=== PATIENT | female | born 1965 | race African-American/Black ===

== ENCOUNTER → 2016-03-27 | Outpatient (CLI) | payer BC ==
[~2016-03-27] MED LIST: ALLEGRA180 MG PO; ASPIR 8181 MG PO; COREG6.25 MG PO; ESTRACE0.5 MG PO; FLEXERIL PO; FLONASE 0.05%50 MCG NASAL; HYDROXYCHLOROQ200 M1 PO; IMURAN 50MG TAB50 M1 PO; KLOR-CON 1010 MEQ PO; LASIX 20 MG TAB20 MG PO; LISINOPRIL5 MG PO; METAXALONE800 MG PO; NAPROSYN500 MG PO; NAPROXEN DELAY500 M1 PO; NEXIUM40 MG PO; NORCO 5-325 TA1 EACH PO; PAXIL40 MG PO; PREDNISONE 2.52.5 M1 PO; PREDNISONE 5 MG5 M1 PO; PROAIR HFA8.5 GM INH; REQUIP0.5 MG PO; UNICOMPLEX M TA1 TA1 PO; ZANTAC 150MG T150 M1 PO
--- NOTE | ~2016-03-27 | 2DMMODE ---
[facility] [place] [address] 2 D/M-MODE ECHOCARDIOGRAM Name: DAVIDSON LEUNG Room #: REG [facility]#: [id number] Admission: 03/27/16 Attend Phys: Adonis Espinosa Discharge: Date of : 67 Date of Service: 03/27/16 0927 Report #: [id number] THIS REPORT FOR: //name// Transthoracic Echocardiography Ordering physician: Adonis Espinosa Referring physician: Adonis Espinosa Sales Associate Cashier: Aria Bradley Indications/History: Cardiomyopathy. BP: 119 / HR: 63bpm Height: 65in Weight: 224.5lb 72 Study data: M-mode, complete 2D, complete spectral Doppler, and color Doppler. Location: Echo laboratory. Routine. Image quality was adequate. The study was technicallydifficult due to body habitus. 2D measurements Normal Normal LVID ED 59.7mm 36-57 IVS ED 10.7mm 6-11 LVID ES 50.7mm 23-40 LVPW ED 9.9mm 6-11 LA volume 45ml/m2 16-28 AoRoot diam 27.1mm 21-37 index ED LVOT diameter 21mm 18-23 Findings: Left ventricle: The cavity size was dilated. Wall thickness was normal. Systolic function was moderately reduced. The estimated ejection fraction was in the range of 35-40%. Right ventricle: The cavity size was normal. Systolic function was mildly reduced. Right atrium: The atrium was normal in size. Left atrium: The atrium was moderately to severely dilated. Volume index: 45ml/m2 (S). Aortic valve: Structurally normal valve. Doppler: There was no stenosis. Trivial regurgitation. Peak velocity: 116.3cm/s (S). [facility] [employer] [place] [address] 2 D/M-MODE ECHOCARDIOGRAM Name: DAVIDSON LEUNG Room #: [facility] Rao#: [id number] Admission: 03/27/16 Attend Phys: Adonis Espinosa Discharge: Date of : 67 Date of Service: 03/27/16 0927 Report #: [id number] Mitral valve: Structurally normal valve. Doppler: There was no evidence for stenosis. Moderate regurgitation. Peak E-wave velocity: 106.3cm/s. Peak gradient: 4.5mm Hg (D). Peak A-wave velocity: 26.6cm/s. Tricuspid valve: Structurally normal valve. Doppler: There was no evidence for stenosis. Trivial regurgitation. Regurgitant peak velocity: 279.9cm/s. Peak RV-RA gradient: 31mm Hg (S). Pulmonic valve: Structurally normal valve. Doppler: There was no evidence for stenosis. Mild regurgitation. Pericardium: There was no pericardial effusion. Aorta: Aortic root: The aortic root was normal in size. Pulmonary artery: Systolic pressure was estimated to be 36mm Hg. Diastolic function: Doppler parameters are consistent with a reversible restrictive pattern, indicative of decreased left ventricular diastolic compliance and/or increased left atrial pressure (grade 3 diastolic dysfunction). Systemic veins: Inferior vena cava: The vessel was normal in size; the respirophasic diameter changes were in the normal range (= 50%). Conclusions 1. Left ventricle: The cavity size was dilated. Wall thickness was normal. Systolic function was moderately reduced. The estimated ejection fraction was in the range of 35-40%. 2. Left atrium: The atrium was moderately to severely dilated. 3. Aortic valve: Structurally normal valve. Trivial regurgitation. 4. Mitral valve: Structurally normal valve. Moderate regurgitation. 5. Pulmonic valve: Mild regurgitation. 6. Tricuspid valve: Structurally normal valve. Trivial regurgitation. 7. Pulmonary arteries: Systolic pressure was estimated to be 36mm Hg. <ELECTRONICALLY SIGNED> By: Cristino Rodriguez MD 03/27/16 1027 0927 1027 Cristino Rodriguez MD /ayana
== END ==
LOC: CV 03-14 12:01
DX: I42.9 Cardiomyopathy, unspecified (principal)

== ENCOUNTER 2019-08-26 17:25 | Emergency (ER) | payer BC ==
[~2019-08-26] VITALS: Ht 165.1 cm; Wt 83.9 kg
[2019-08-26] MEDS ORDERED: ADVAIR 500-501 EACH INH (17:35)
[2019-08-26] MEDS ORDERED: TORSEMIDE20 MG PO (17:35)
[2019-08-26] MEDS ORDERED: SPIRIVA INH (17:35)
[2019-08-26 17:50] LABS: URINE BILIRUBIN NEGATIVE (Negative); URINE BLOOD 1+ (Negative); URINE CLARITY CLEAR; URINE COLOR YELLOW; URINE GLUCOSE-RANDOM* NEGATIVE (Negative); URINE KETONES TRACE (Negative); URINE LEUKOCYTES-REFLEX NEGATIVE (Negative); URINE NITRITE-REFLEX NEGATIVE (Negative); URINE PROTEIN (DIPSTICK) 1+ (Negative); URINE SPECIFIC GRAVITY 1.025 (1.005-1.035); URINE UROBILINOGEN 0.2 E.U./dl (0.2-1.0)
[2019-08-26 18:04] LABS: BACTERIA-REFLEX None Seen /HPF (None Seen); CRYSTALS None Seen /LPF (None Seen); SQUAMOUS 0-3 Few /LPF (0-3); URINE RBC 0-2 Rare /HPF (0-2); URINE WBC-REFLEX None Seen /HPF (0-5)
[2019-08-26 18:20] LABS: BASOPHILS 0.4 % (0.0-2.0); EOSINOPHILS 0.3 % (0.0-3.0); HEMATOCRIT 45.7 % (37.0-47.0); HEMOGLOBIN 15.1 gm/dL (12.0-15.0); LYMPHOCYTES 20.6 % (24.0-44.0); MCH 32.7 pg (26.0-34.0); MCV 99.2 fL (80.0-100.0); MONOCYTES 5.3 % (1.0-8.0); PLATELET COUNT 245 thou/uL (150-400); POLYS 73.4 % (36.0-66.0); WBC 8.2 thou/uL (4.0-11.0)
[2019-08-26 18:29] LABS: CALCIUM 8.9 mg/dL (8.5-10.1); CREATININE 1.5 mg/dL (0.6-1.0); POTASSIUM 3.7 mmol/L (3.5-5.1)
[2019-08-26 18:34] LABS: TOTAL BILIRUBIN 0.8 mg/dL (0.2-1.0); TOTAL PROTEIN 6.5 g/dL (6.4-8.2)
[2019-08-26 19:04] LABS: INR 1.1; PROTIME 11.4 Seconds (9.3-11.4)
[2019-08-26] MEDS ORDERED: PREDNISONE 10 M10 M1 PO (19:35)
[2019-08-26] MEDS ORDERED: NORCO 7.5-3251 EACH PO ×2 (19:35→19:44)
[2019-08-26 19:49] VITALS: BP 99/73
--- NOTE | 2019-08-27 07:36 | EKG ---
[facility] [place] [address] ELECTROCARDIOGRAM REPORT Name: DAVIDSON LEUNG Room #: DEP [facility]#: [id number] Admission: 08/26/19 Attend Phys: Discharge: 08/26/19 Date of : 67 Report #: [id number] THIS REPORT FOR: cc: Bhumi Hernandez Diane C. DO Lundgren,Ishmael Tom MD [facility] THIS REPORT FOR: //name// [facility] ED Test Date: 2019-08-26 Test Time: 18:32:02 Pat Name: DAVIDSON LEUNG Department: Room: Gender: F [address] Supervisor: bell : 1965 Requested By: Romi Fraser Order Number: [id number] MD: Ishmael Llamas Measurements Intervals [place] Rate: 80 P: 30 GA: 164 QRS: -16 QRSD: 109 T: 41 QT: 394 QTc: 455 Interpretive Statements Sinus rhythm Left atrial enlargement Borderline left axis deviation Nonspecific T wave abnormality Compared to ECG 09/01/2015 16:39:54 No significant changes Electronically Signed On 08-27-2019 7:34:56 CDT by Ishmael Llamas [email or web address] <ELECTRONICALLY SIGNED> By: Ishmael Llamas MD, [facility] 08/27/19 0734 [id number] Ishmael Llamas MD, [facility] /EPI
== END 2019-08-26 19:51 | disposition home or self-care (01) ==
LOC: ER 17:25
PROVIDERS: Physician Assistant
DX: R53.83 Other fatigue (principal); M32.9 Systemic lupus erythematosus, unspecified; M25.50 Pain in unspecified joint; K21.9 Gastro-esophageal reflux disease without esophagitis; Z88.5 Allergy status to narcotic agent; Z79.899 Other long term (current) drug therapy; Z79.82 Long term (current) use of aspirin; Z90.710 Acquired absence of both cervix and uterus